=== PATIENT | female | born 1970 | race Caucasian/White ===

== ENCOUNTER → 2023-12-13 | Outpatient (CLI) | payer OTHER | END | disposition home or self-care (01) | LOC: RAH 16:15 | PROVIDERS: ATTEND Internal Medicine Critical Care Medicine | DX: Z13.6 Encounter for screening for cardiovascular disorders (principal) | CPT/HCPCS: 75571 ==

== ENCOUNTER → 2023-12-16 | Outpatient (CLI) | payer BC | END | disposition home or self-care (01) | LOC: RAH 11:17 | PROVIDERS: ATTEND Internal Medicine Critical Care Medicine | DX: I65.23 Occlusion and stenosis of bilateral carotid arteries (principal); R09.89 Other specified symptoms and signs involving the circulatory and respiratory systems | CPT/HCPCS: 93880 ==